=== PATIENT | male | born 1965 | race Two or more races ===

== ENCOUNTER 2016-11-04 17:22 | Inpatient (IN) | payer OTHER ==
[~2016-11-04] VITALS: Ht 180.3 cm; Wt 83.9 kg
--- NOTE | 2016-11-04 17:44 | NUR ---
CALLED [facility] FOR TRANSPORTATION GOING TO [facility] CAT SCAN ETA 183
[2016-11-04] MEDS ORDERED: TDAP [DIPH/PERTUSSIS/TET] 0.5 ML VIAL IM ONE ×2 (17:52→18:00)
[2016-11-04] MEDS ORDERED: HYDROCODONE/APAP 10/325MG 1 EA TABLET ONE (17:52)
[2016-11-04] MEDS ORDERED: HYDROCODONE/APAP 10/325MG 1 EA TABLET PO ONE (18:00)
--- NOTE | 2016-11-04 18:39 | NUR ---
REPORT GIVEN TO [facility] FOR TRANSPORT TO [facility] FOR [facility] SCAN.
--- NOTE | 2016-11-04 20:25 | NUR ---
Patient back from ct, aaox4, no s/s of acute distress. Breathing even and unlabored. Reports sharp pain on lower leg, distal + for CMS. Comfort measures rendered. VSS.
--- NOTE | 2016-11-04 20:43 | NUR ---
xr at bedside.
[2016-11-04] MEDS ORDERED: MORPHINE SULFATE INJ 2 MG/ML DISP.SYRIN IV ONE (21:30)
[2016-11-04] MEDS ORDERED: IV NS 0.9% 1,000 ML BAG IV ONE (21:30)
[2016-11-04] MEDS ORDERED: ONDANSETRON HCL/PF 4 MG/2 ML VIAL IVP ONE (21:30)
[2016-11-04] MEDS ORDERED: MORPHINE SULFATE INJ 4 MG/ML DISP.SYRIN ONE (21:35)
[2016-11-04] MEDS ORDERED: IV NS 0.9% 1,000 ML ONE (21:35)
[2016-11-04] MEDS ORDERED: ONDANSETRON HCL/PF 4 MG/2 ML VIAL ONE (21:35)
[2016-11-04] MEDS ORDERED: IV SET PRIMARY 1 EA INFUS.SET MC ONE (21:35)
[2016-11-04 21:43] LABS: BASOPHILS # (AUTO) 0.1 /CMM (0.0-0.2); BASOPHILS % (AUTO) 0.3 % (0.0-2.0); EOSINOPHILS % (AUTO) 0.1 % (0.0-6.0); HEMATOCRIT 46 % (39-51); HEMOGLOBIN 15.8 g/dL (13.5-17.5); LYMPHOCYTES # (AUTO) 1.4 /CMM (0.8-4.8); LYMPHOCYTES % (AUTO) 7.5 % (20.0-44.0); MEAN CORPUSCULAR HEMOGLOBIN 30 PG (26.0-33.0); MEAN CORPUSCULAR HGB CONC 34 g/dl (31.0-36.0); MEAN CORPUSCULAR VOLUME 89 fL (80-96); MONOCYTES % (AUTO) 5.1 % (2.0-12.0); NEUTROPHILS # (AUTO) 16.5 /CMM (1.8-8.9); PLATELET COUNT (AUTO) 376 /CMM (150-450); RDW COEFFICIENT OF VARIATION 11.7 (11.5-15.0)
[2016-11-04 21:50] LABS: PROTHROMBIN TIME 10.4 SECS (9.5-12.7)
[2016-11-04 21:53] LABS: BILIRUBIN,DIRECT 0.1 mg/dL (0.0-0.2); BILIRUBIN,TOTAL 0.5 mg/dL (0.2-1.0); CALCIUM, SERUM 9.2 mg/dL (8.5-10.1); TOTAL PROTEIN, SERUM 7.4 g/dL (6.4-8.2)
--- NOTE | 2016-11-04 22:03 | NUR ---
PAGED CHARLES HENRY
[2016-11-04] MEDS ORDERED: HYDROMORPHONE 1 MG/1 ML DISP.SYRIN IV ONE (22:30)
[2016-11-04] MEDS ORDERED: HYDROMORPHONE 1 MG/1 ML DISP.SYRIN ONE (22:36)
--- NOTE | 2016-11-04 23:03 | NUR ---
Report given to [facility] for ezequiel.
[2016-11-04 23:15] VITALS: BP 114/74
--- NOTE | 2016-11-04 23:15 | NUR ---
MS/PSYCHOLOGICAL SCIENCE PROFESSOR; ADMITTED 50 YEARS OLD MALE PT. FROM ER VIA GURNEY ACCOMPANIED BY THE STONE DRILLER AND PT 'S . PT IS ALERT AND ORIENTED X 4. DX; LT LEG FRACTURE. NOTED WIT ABRASIONS RT ELBOW, LT HAND, RT LOWER DRIED SCAB, REDNESS RT LOWER AXILLA. HL INTACT. SWOLLEN LT LEG WITH SUPPORT . BED ON LOWER POSITION AND LOCKED. SIDE RAILS AR UP FOR SAFETY.
--- NOTE | 2016-11-04 23:28 | NUR ---
Transported to room 312-1, no incident noted. Endorsed care to [facility].
[2016-11-04 23:30] VITALS: BP 114/74
--- NOTE | 2016-11-04 23:55 | NUR ---
MS/MERINGUER; PT SEEN BY DR. CHARLES HENRY WITH ORDERS. FOOD GIVEN. PT INSTRUCTED NPO AFTER MIDNIGHT ORDERED. PT REFUSED TO TURN TO CHECK HIS LT LEG AND BACK DUE TO PAIN.
[2016-11-05] MEDS ORDERED: ONDANSETRON HCL/PF 4 MG/2 ML VIAL IVP PRN
[2016-11-05] MEDS ORDERED: Z GUARD REMEDY 2 OZ OINT TP PRN
[2016-11-05] MEDS ORDERED: IV D5/0.45 NACL 1,000 ML IV ONE (00:43)
[2016-11-05] MEDS ORDERED: IV SET PRIMARY PUMP SET 1 EA INFUS.SET MC ONE (00:43)
[2016-11-05] MEDS: IV D5/0.45 NACL 1,000 ML IV PRN (00:53)
[2016-11-05] MEDS ORDERED: HYDROMORPHONE 1 MG/1 ML DISP.SYRIN ONE ×2 (01:52→05:04)
[2016-11-05] MEDS: HYDROMORPHONE INJ 2 MG/ML DISP.SYRIN IV PRN ×2 (02:02→05:12)
--- NOTE | 2016-11-05 06:46 | NUR ---
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 IVF ON PROGRESS. STILL ON NPO. PT STILL REFUSED TO BE TURNED TO SIDE TO CHECK THE BACK AND LT LEG DUE TO PAIN. CONTINUE TO MONITOR CALL LIGHT WITHIN REACH.
[2016-11-05 06:47] LABS: BASOPHILS % (AUTO) 0.1 % (0.0-2.0); EOSINOPHILS # (AUTO) 0.2 /CMM (0.0-0.7); EOSINOPHILS % (AUTO) 1.2 % (0.0-6.0); HEMATOCRIT 38 % (39-51); HEMOGLOBIN 13.4 g/dL (13.5-17.5); LYMPHOCYTES # (AUTO) 2.3 /CMM (0.8-4.8); LYMPHOCYTES % (AUTO) 17.7 % (20.0-44.0); MEAN CORPUSCULAR HEMOGLOBIN 31 PG (26.0-33.0); MEAN CORPUSCULAR HGB CONC 35 g/dl (31.0-36.0); MEAN CORPUSCULAR VOLUME 89 fL (80-96); MONOCYTES # (AUTO) 1.1 /CMM (0.1-1.30); MONOCYTES % (AUTO) 8.6 % (2.0-12.0); NEUTROPHILS # (AUTO) 9.6 /CMM (1.8-8.9); NEUTROPHILS % (AUTO) 72.4 % (43.0-81.0); PLATELET COUNT (AUTO) 363 /CMM (150-450); RDW COEFFICIENT OF VARIATION 12.3 (11.5-15.0); RED BLOOD CELL COUNT(AUTO) 4.34 MIL/uL (4.5-6.0); WHITE BLOOD COUNT (AUTO) 13.2 K/uL (4.3-11.0)
[2016-11-05 06:58] LABS: ALBUMIN 3.4 g/dL (3.4-5.0); BILIRUBIN,TOTAL 0.5 mg/dL (0.2-1.0); CALCIUM, SERUM 8.2 mg/dL (8.5-10.1); POTASSIUM 3.7 mmol/L (3.5-5.1); TOTAL PROTEIN, SERUM 6.5 g/dL (6.4-8.2)
--- NOTE | 2016-11-05 07:35 | NUR ---
MS RN OPENING NOTE PATIENT IS ALERT AND ORIENTED x4. PAIN AT THIS TIME, 10/10 ON LEFT LEG. PAIN MEDICATION GIVEN. CALL LIGHT WITHIN REACH. SAFETY MEASURES IMPLEMENTED. IV INTACT AND PATENT NO REDNESS OR SWELLING NOTED. BED LOCKED IN LOWEST POSITION WITH SIDERAILS UP x2. CURRENTLY NPO, AWAITING ORTHO SURGERY CONSULT. WILL CONTINUE TO MONITOR.
[2016-11-05 07:53] LABS: THYROID STIMULATING HORMONE 1.043 uIU/mL (0.358-3.74)
[2016-11-05 08:00] VITALS: BP 125/80
--- NOTE | 2016-11-05 08:00 | NUR ---
MS RN NOTE PER PATIENT REQUEST, TO CUT SHORTS OFF PATIENT. MADE CHARGE AWARE. PATIENT GAVE PERMISSION TO CUT SHORTS.
[2016-11-05] MEDS: HYDROMORPHONE 1 MG/1 ML DISP.SYRIN IV PRN ×5 (08:27→22:38)
[2016-11-05] MEDS ORDERED: HYDROMORPHONE 1 MG/1 ML DISP.SYRIN IV ONE ×2 (11:00→11:30)
--- NOTE | 2016-11-05 11:00 | NUR ---
MS RN NOTE PATIENT REFUSED TO HAVE SPLINT PUT ON. PATIENT WAS IN TOO MUCH PAIN, PAIN MEDICATION GIVEN. PATIENT STATED THAT THE ONLY WAY HE WILL HAVE ANY SPLINTS OR CAST ON IS IF HE IS UNDER SEDATION. MADE GARLAND NEVAREZ NP AWARE. SPOKE TO PATIENT REGARDING MATTER. PATIENT STILL REFUSED SPLINT. WILL ENDORSE TO GENERAL SUPERVISOR NURSE
--- NOTE | 2016-11-05 13:45 | NUR ---
MS ROCHE NOTE PATIENT TAKEN TO RADIOLOGY FOR CT SCAN FOR LEG/KNEE. PATIENT IS STABLE. PAIN [id number] Addendum: 11/05/16 at 1404 by REN HICKS RN PAIN MEDICATION GIVEN. PATIENT OKAY FOR CT SCAN
--- NOTE | 2016-11-05 14:10 | NUR ---
MS RN NOTE PATIENT CAME BACK FROM CT SCAN. PATIENT IS STABLE
[2016-11-05 16:00] VITALS: BP 139/65
[2016-11-05] MEDS ORDERED: HYDROMORPHONE 1 MG/1 ML DISP.SYRIN IV PRN (18:18)
--- NOTE | 2016-11-05 19:00 | NUR ---
MS RN OPENING NOTE PATIENT IS ALERT AND ORIENTED X4 NO S/S OF DISTRESS, NO CHEST PAIN. NO SOB OR DISTRESS NOTED. IN STABLE CONDITION. SAFETY MEASURES IMPLEMENTED. IV INTACT NO S/S OF INFILTRATION NOTED. CALL LIGHT WITHIN REACH. ON LOW BED TO ENSURE SAFETY. WILL CONTINUE TO MONITOR
--- NOTE | 2016-11-05 19:14 | NUR ---
MS RN CLOSING NOTE PATIENT IS ALERT AND ORIENTED x4. NO PAIN AT THIS TIME. NO SOB OR DISTRESS NOTED. ALL DUE MEDICATION GIVEN ORDERED. CALL LIGHT WITHIN REACH. SAFETY MEASURES IMPLEMENTED. REGULAR DIET. TO BE NPO AFTER 8:30 AM. WILL HAVE SURGERY FOR ORIF ON LEFT TIBIA. INFORMED CONSENT OBTAINED. IV INTACT AND PATENT NO REDNESS OR SWELLING NOTED. WILL ENDORSE TO SITE PHYSICIAN NURSE
[2016-11-05 20:00] VITALS: BP_SYST 124; BP_DIAS 48; BP_DIAS 86
[2016-11-05] MEDS ORDERED: HYDROMORPHONE MDV 30 MG in IV NS 0.9% 15 ML, PCA TOTAL VOLUME 1 BAG IV PRN ×3 (20:00)
[2016-11-05] MEDS: ACETAMINOPHEN 325 MG TABLET PO PRN (22:38)
[2016-11-06] VITALS (9 sets, daily range): BP systolic 119–155; BP diastolic 82–95
[2016-11-06] MEDS ORDERED: ANCEF 1 GM/50 ML D5W IV SCH ×2 (01:00)
[2016-11-06] MEDS: IV D5/0.45 NACL 1,000 ML IV PRN (02:14)
[2016-11-06] MEDS: HYDROMORPHONE 1 MG/1 ML DISP.SYRIN IV PRN ×4 (02:38→16:06)
--- NOTE | 2016-11-06 04:04 | NUR ---
MS RN NOTES 11/05/16 AT 2100 EXPLAINED AND EDUCATED THE PATIENT ABOUT THE ACTIVE AND ONGOING PAIN MEDICATION IV DRIP THAT HE HAS INCASE THE PAIN IS NOT TOLERABLE ANYMORE. THAT I WILL START JOVANY. PATIENT DECIDED THAT HE WILL USE THE I.V DILAUDID DRIP AFTER HIS SURGERY IS DONE TODAY. RISKS AND BENEFITS EXPLAINED REFUSE IV DRIP DILAUDID AT THIS TIME PER PATIENT HE WANTS TO USE FIRST THE IV PUSH DILAUDID 1ML/ML Q 4 HOURS. MADE AWARE AND AMADOU NO AT 2200
[2016-11-06] MEDS: ACETAMINOPHEN 325 MG TABLET PO PRN (06:45)
--- NOTE | 2016-11-06 06:53 | NUR ---
MS RN CLOSING NOTES PATIENT COMFORTABLY ASLEEP AND EASILY AWAKEN,. A/O X 4 IV SITE NO S/S OF INFILTRATED, IV HYDRATION TOLERATED WELL. RUNNING AT 75CC/HR. RESPIRATIONS EVEN AND UNLABORED. NO S/S OF ACUTE DISTRESS, NO SOB, NO COUGH, NO CONGESTION, SKIN WARM AND DRY TO TOUCH, AFEBRILE, ALL NURSING CARE NEEDS PROVIDED AND RENDERED, NEEDS ATTENDED AND ANTICIPATED, KEPT CLEAN AND DRY AND COMFORTABLE, BLADDER NOT DISTENDED, ASSISTED REPOSITIONED EVERY 2 HOURS FOR COMFORT. GOOD SKIN CARE PROVIDED. ABDOMEN SOFT AND NON TENDER. NO C/O OF CONSTIPATION. ALL DUE MEDS WAS GIVEN TOLERATED. OFFLOAD AT ALL TIMES. FREQUENT VISUAL CHECK DONE FOR SAFETY EVERY 2 HOURS. SAFE HAZARD FREE ENVIRONMENT PROVIDED. CALL LIGHT WITHIN EASY TO REACH, ON LOW BED AT ALL TIMES TO ENSURE SAFETY, WILL ENDORSE TO THE NEXT SHIFT CONTINUE PLAN OF CARE. PATIENT STATED AGAIN THAT FOR NOW NO NEED OF I.V DRIP OF DILAUDID AND WILL USE AFTER SURGERY TODAY. MAINTAINS NPO AFTER MIDNIGHT.
--- NOTE | 2016-11-06 07:45 | NUR ---
MS RN OPENING NOTE PATIENT IS ALERT AND ORIENTED x4. NO PAIN AT THIS TIME. NO SOB OR DISTRESS NOTED. SAFETY MEASURES IMPLEMENTED. CALL LIGHT WITHIN REACH. NPO THIS MORNING WILL HAVE SURGERY LATER THIS AFTERNOON. INFORMED CONSENT OBTAINED. WILL CONTINUE TO MONITOR.
--- NOTE | 2016-11-06 16:20 | NUR ---
MS RN NOTE PATIENT IS HEADING DOWN TO OR FOR SURGERY. PATIENT IS STABLE. VITALS ARE STABLE. NO PAIN AT THIS TIME. NO SOB OR DISTRESS NOTED.
[2016-11-06] MEDS ORDERED: FENTANYL PF 250MCG/5ML AMPUL ONE (16:37)
[2016-11-06] MEDS ORDERED: ROCURONIUM BROMIDE 50 MG/5 ML ONE (16:38)
[2016-11-06] MEDS ORDERED: BACITRACIN 50000 UNITS/VIAL ONE (17:40)
[2016-11-06] MEDS ORDERED: DESFLURANE 240 ML BOTTLE IH ONE (18:28)
[2016-11-06] MEDS ORDERED: SEVOFLURANE 250 ML BOTTLE IH ONE (18:28)
--- NOTE | 2016-11-06 18:55 | NUR ---
MS RN CLOSING NOTE PATIENT IS IN SURGERY FOR ORIF ON THE LEFT LEG. WILL ENDORSE TO SURGEON'S ASSISTANT NURSE
[2016-11-06] MEDS ORDERED: HYDROMORPHONE INJ 2 MG/ML DISP.SYRIN ONE ×2 (19:00→19:47)
--- NOTE | 2016-11-06 19:34 | NUR ---
PATIENT AT SURGERY AT THIS TIME.
[2016-11-06] MEDS ORDERED: ANESTHESIA TRAY IN PYXIS 1 EA TRAY MC ONE (19:56)
[2016-11-06] MEDS ORDERED: BUPIVACAINE MPF 0.5% W/EPI INJ 30 ML VIAL ONE (20:05)
[2016-11-06] MEDS ORDERED: HYDROMORPHONE 1 MG/1 ML DISP.SYRIN ONE (20:14)
[2016-11-06] MEDS ORDERED: NALOXONE HCL 0.4 MG/ML AMPUL IV PRN (21:00)
[2016-11-06] MEDS ORDERED: HYDROCODONE/APAP 5/325MG 1 EACH TABLET PO PRN (21:00)
--- NOTE | 2016-11-06 21:40 | NUR ---
MS RN OPENING NOTE PATIENT IS ALERT AND ORIENTED x4 TRANSPORTED FROM [facility] VIA ACLS PROTOCOL S/P ORIF L LOWER LEG, NO S/S OF DISTRESS, NO CHEST PAIN. NO SOB OR DISTRESS NOTED. IN STABLE CONDITION. SAFETY MEASURES IMPLEMENTED. OROZCO CATHETER IN PLACE.. IV INTACT NO S/S OF INFILTRATION NOTED. CALL LIGHT WITHIN REACH. ON LOW BED TO ENSURE SAFETY. WILL CONTINUE TO MONITOR PATIENT.
[2016-11-06] MEDS ORDERED: SECONDARY IV SET 1 EA INFUS.SET MC ONE (22:56)
[2016-11-07] VITALS: BP 158/98
[2016-11-07 00:10] VITALS: BP 158/98
--- NOTE | 2016-11-07 01:00 | NUR ---
ANCEF 2 GRAMS IV ATB MEDICATION GIVEN ORDERED 11/07/16 AT 0100 Q8 PHARMACY WRONG INPUT DATE AND TIME.
[2016-11-07] MEDS ORDERED: SET PCA INFUSE SET 1 EA INFUS.SET MC ONE (01:22)
[2016-11-07] MEDS ORDERED: IV NS 0.9% 250 ML IV ONE ×2 (01:29→09:07)
[2016-11-07] MEDS ORDERED: IV SET PRIMARY PUMP SET 1 EA INFUS.SET MC ONE ×2 (01:35→09:06)
[2016-11-07] MEDS: HYDROMORPHONE MDV 30 MG in IV NS 0.9% 15 ML, PCA TOTAL VOLUME 1 BAG IV PRN ×3 (02:04)
[2016-11-07 04:10] VITALS: BP 136/78
[2016-11-07] MEDS: IV D5/0.45 NACL 1,000 ML IV PRN (05:40)
--- NOTE | 2016-11-07 06:32 | NUR ---
MS RN CLOSING NOTES IN BED ASLEEP AND EASILY AWAKEN, SEMI FOWLERS POSITION, TOLERATING ROOM AIR. 02 SAT AT SP02 98% MONITORED CONTINUOUSLY. S/P SURGERY ORIF 11/06/16 PATIENT RECEIVING HYDROMORPHONE/DILAUDID 1MG/ML VIA EVALUATOR DOSE OF 0.4 MG LOCKOUT INTERVAL 10 MINUTES AND FOUR HOUR LIMIT 6 MG. SKIN WARM AND DRY TO TOUCH, AFEBRILE, ALL NURSING CARE NEEDS PROVIDED AND RENDERED, NEEDS ATTENDED AND ANTICIPATED, KEPT CLEAN AND DRY AND COMFORTABLE, BLADDER NOT DISTENDED, ON F/C CATH. DRAINING YELLOW VIA GRAVITY WITH NO SEDIMENTS NO HEMATURIA NO CLOUDINESS. CONTINUE WITH CURRENT MEDICATION ORDERED, NO LATE ADVERSE REACTION NOTED/REPORTED. FLUIDS PROVIDED ORDERED. COOPERATIVE TO HIS PLAN OF CARE. SAFE HAZARD FREE ENVIRONMENT MAINTAINED. ASSISTED REPOSITION PATIENT EVERY 2 HOURS FOR SKIN MANAGEMENT AND COMFORT. GOOD SKIN CARE PROVIDED. ALL DUE MEDS WAS GIVEN. IV FLUIDS ONGOING IV SITE NO S/S OF INFILTRATION NOTED. KEPT AT LOW BED. FREQUENT VISUAL CHECK FOR SAFETY. PLAN OF CARE ORDERED. CALL LIGHT ATTENDED PROMPTLY AND KEPT AT EASY REACH. WILL ENDORSE TO THE NEXT SHIFT CONTINUE PLAN OF CARE. OFFLOAD AT ALL TIMES.
[2016-11-07 06:55] LABS: BASOPHILS % (AUTO) 0.2 % (0.0-2.0); EOSINOPHILS % (AUTO) 0.1 % (0.0-6.0); HEMATOCRIT 40 % (39-51); HEMOGLOBIN 13.5 g/dL (13.5-17.5); LYMPHOCYTES # (AUTO) 2.2 /CMM (0.8-4.8); MEAN CORPUSCULAR HEMOGLOBIN 30 PG (26.0-33.0); MEAN CORPUSCULAR HGB CONC 34 g/dl (31.0-36.0); MEAN CORPUSCULAR VOLUME 90 fL (80-96); MONOCYTES # (AUTO) 1.3 /CMM (0.1-1.30); MONOCYTES % (AUTO) 7.9 % (2.0-12.0); NEUTROPHILS # (AUTO) 13.2 /CMM (1.8-8.9); NEUTROPHILS % (AUTO) 78.8 % (43.0-81.0); PLATELET COUNT (AUTO) 412 /CMM (150-450); RED BLOOD CELL COUNT(AUTO) 4.44 MIL/uL (4.5-6.0); WHITE BLOOD COUNT (AUTO) 16.8 K/uL (4.3-11.0)
[2016-11-07 07:07] LABS: CALCIUM, SERUM 9.6 mg/dL (8.5-10.1)
--- NOTE | 2016-11-07 07:34 | NUR ---
PATIENT RECEIVED 2MG/2ML OF DILAUDID VIA KNIT GOODS PRESS HAND PUMP SINCE STARTED.
--- NOTE | 2016-11-07 07:39 | NUR ---
RN CLINT NOTES RECEIVED PT AWAKE AND ALERT WITH NAD. LEFT LEG DRESSING AND IMMOBILIZER IN PLACE WITH ICE PACK IN PLACE. ABLE TO MOVE AFFECTED EXT, SKIN AND CIRCULATION WNL. OROZCO CATH DRAINING THRU GRAVITY. ON SENIOR DIRECTOR MARKETING DILAUDID FOR PAIN MANAGEMENT; TEACHINGS GIVEN. SAFETY ENSURED AND ALL NEEDS ATTENDED. WILL MONITOR
[2016-11-07 08:00] VITALS: BP 139/82
[2016-11-07] MEDS: CEFAZOLIN 2 GM in IV D5W 50 ML IV SCH ×2 (09:03→17:30)
[2016-11-07] MEDS ORDERED: SECONDARY IV SET 1 EA INFUS.SET MC ONE (09:06)
--- NOTE | 2016-11-07 11:48 | NUR ---
RN NOTES TEACHINGS RE IS USE GIVEN= 700 ML
[2016-11-07 16:00] VITALS: BP 122/80
--- NOTE | 2016-11-07 17:33 | NUR ---
RN NOTES PT SEEN AND ASESSED BY ORTHO AVIATION SAFETY OFFICER ADAM MOODY WITH VERBAL ORDER FOR PT CONSULT
--- NOTE | 2016-11-07 18:53 | NUR ---
RN CLOSING NOTES PT DOZING INTERMITTENTLY , NO SOB, NAD. USES PRODUCTION TOOL ENGINEER DILAUDID WHEN NEEDED AND VERBALIZED RELIEF FROM PAIN; NO A/R NOTED. IVF INFUSING WELL. LEFT LEG DRESSING AND IMMOBILIZER IN PLACE, SKIN AND CIRCULATION WNL. DRESSING INTACT WITH NO BLEEDING NOTED. MEDS GIVEN. WILL ENDORSE TO NEXT SHIFT FOR CONTINUITY OF CARE IN STABLE CONDITION
--- NOTE | 2016-11-07 19:00 | NUR ---
MS RN OPENING NOTE PATIENT IS ALERT AND ORIENTED X4, FAMILY AT BEDSIDE, NO S/S OF DISTRESS, NO CHEST PAIN. NO SOB OR DISTRESS NOTED. IN STABLE CONDITION. SAFETY MEASURES IMPLEMENTED. IV INTACT NO S/S OF INFILTRATION NOTED. CALL LIGHT WITHIN REACH. ON LOW BED TO ENSURE SAFETY. WILL CONTINUE TO MONITOR
[2016-11-07 20:00] VITALS: BP 122/69
[2016-11-07] MEDS: ENOXAPARIN SODIUM 40 MG/0.4 ML DISP.SYRIN SQ SCH (21:20)
[2016-11-08] MEDS: HYDROMORPHONE MDV 30 MG in IV NS 0.9% 15 ML, PCA TOTAL VOLUME 1 BAG IV PRN ×3 (02:03)
[2016-11-08] MEDS: IV D5/0.45 NACL 1,000 ML IV PRN (05:31)
--- NOTE | 2016-11-08 06:49 | NUR ---
MS RN CLOSING NOTES PATIENT COMFORTABLY IN BED ASLEEP AND EASILY AWAKEN, ALERT AND VERBALLY X 4 RESPONSIVE DENIES PAIN OR DISTRESS, RESPONDS APPROPRIATELY TO VERBAL STIMULI, RESPIRATIONS EVEN UNLABORED BREATH SOUNDS. APICAL PULSE REGULAR; NO S/S OF BLEEDING NOTED. GOOD SKIN CARE PROVIDED. MAINTAINS NWB LLE, ELEVATED LLE, ICE PUT, DRESSING CHANGE WILL BE TODAY, ON ADOBE FLEX DEVELOPER PUMP ONGOING DILAUDID ORDERED. PATIENT IN STABLE CONDITION WITH NO SOB NO S/S OF DISTRESS NO NAUSEA AND VOMITING NO HEADACHE NO PAIN, NO COMPLAIN OF CHEST PAIN SAFETY ENVIRONMENT PROVIDED. FREE OF CLUTTERS, NEEDS ATTENDED AND ANTICIPATED, NURSING CARE RENDERED, KEPT CLEAN AND DRY AND COMFORTABLE. ALL DUE MEDS WAS GIVEN. ASSISTED PATIENT TO REPOSITION. CALL LIGHT IN REACH, BED LOWERED AND LOCKED, SR X2 FOR SAFETY AND WILL ENDORSE CONTINUE PLAN OF CARE.
--- NOTE | 2016-11-08 07:00 | NUR ---
MS RN INITIAL NOTE REPORT RECEIVED AT THE BEDSIDE. NO SOB OR DISTRESS NOTED AT THIS TIME. PATIENT REPORTS TOLERABLE PAIN. PCS CHECKED. 4MLS RECEIVED OVERNIGHT. BED IN LOW POSITION, CALL LIGHT WITHIN PATIENT REACH. WILL CONTINUE TO MONITOR.
--- NOTE | 2016-11-08 07:33 | NUR ---
PATIENT RECEIVED OF TOTAL 4MG/4ML OF DILAUDID VIA CLOTH FOLDER HAND PUMP TOLERATED WELL SINCE 0203 AM. WITNESSED AND ENDORSE ELAINE ROCHE.
[2016-11-08 08:25] VITALS: BP 123/70
[2016-11-08] MEDS ORDERED: diphenhydrAMINE HCL 50 MG/ML VIAL IV PRN (09:30)
[2016-11-08 16:00] VITALS: BP 129/84
--- NOTE | 2016-11-08 19:37 | NUR ---
MS RN CLOSING NOTES NO SIGNIFICANT CHANGES IN PATIENT CONDITION THROUGHOUT THE SHIFT. NO SOB OR DISTRESS NOTED AT THIS TIME. PATIENT REPORTS TOLERABLE PAIN. HOST/HOSTESS HEAD CHECKED WITH ARCELIA, RN AND SHIFT TOTAL CLEARED AT 9.3ML FOR DAY SHIFT. BED IN A LOW POSITION, CALL LIGHT WITHIN PATIENT REACH. ENDORSED FOR SEVERIANO.
--- NOTE | 2016-11-08 19:44 | NUR ---
RN NOTE RECEIVED REPORT. PT AAOX4, REPORTING TOLERABLE PAIN. AIDS COUNSELOR PUMP CHECKED, SETTINGS ACCURATE. KNEE IMMOBILZER IN PLACE. IV INTACT AND PATENT, TOLERATING FLUIDS WELL. ALL NEEDS ATTENED TO AT THIS TIME. WILL CONT TO MONITOR.
[2016-11-08 20:13] VITALS: BP 125/76
[2016-11-08] MEDS ORDERED: SENNOSIDES 8.6 MG TABLET PO ONE (21:30)
[2016-11-08] MEDS ORDERED: LACTULOSE 10 G/15 ML UDC (PYXIS) PO ONE (21:30)
[2016-11-08] MEDS: ENOXAPARIN SODIUM 40 MG/0.4 ML DISP.SYRIN SQ SCH (21:36)
[2016-11-08] MEDS ORDERED: LACTULOSE 10 G/15 ML UDC (PYXIS) ONE (21:36)
[2016-11-08] MEDS ORDERED: BISACODYL SUPP (10 MG) 10 MG/SUPP.RECT SUPP.RECT RC ONE ×2 (21:36→22:30)
[2016-11-08] MEDS ORDERED: SENNOSIDES 8.6 MG TABLET ONE (21:37)
[2016-11-09] MEDS: ZOLPIDEM TARTRATE 5 MG TABLET PO PRN (01:04)
[2016-11-09] MEDS ORDERED: SET PCA INFUSE SET 1 EA INFUS.SET MC ONE (02:08)
[2016-11-09] MEDS: HYDROMORPHONE MDV 30 MG in IV NS 0.9% 15 ML, PCA TOTAL VOLUME 1 BAG IV PRN ×3 (02:24)
[2016-11-09] MEDS ORDERED: IV SET PRIMARY PUMP SET 1 EA INFUS.SET MC ONE (02:32)
[2016-11-09] MEDS ORDERED: IV NS 0.9% 250 ML IV ONE (02:32)
[2016-11-09] MEDS: IV D5/0.45 NACL 1,000 ML IV PRN (05:18)
[2016-11-09] MEDS ORDERED: DEXTROSE 50%-WATER 50 ML DISP.SYRIN ONE (05:46)
--- NOTE | 2016-11-09 06:22 | NUR ---
RN NOTE NO SIGNIFICANT CHANGES OVERNIGHT. PRN AMBIEN EFFECTIVE. PT RESTING WITH EYES CLOSED - NO S/S OF ANY PAIN OR DISCOMFORT AT THIS TIME. BREATHING NON-LABORED AND EVEN. IV INTACT AND PATENT, TOLERATING FLUIDS WELL. WILDLIFE PROTECTOR PUMP IN USE, SETTINGS ACCURATE. TO GO FOR P.T. SESSION IN AM. IMMOBILIZER IN PLACE, DRESSING INTACT. CALL LIGHT IN REACH, WILL F/U WITH DAY SHIFT FOR SEVERIANO.
--- NOTE | 2016-11-09 07:35 | NUR ---
RN OPEN NOTES PATIENT IS ALERT AND ORIENTED TO NAME, PLACE AND TIME. PATIENT IS IN BED. BED IN LOW POSITION, LOCKED AND 2 SIDE RAILS ARE UP. LEFT LEG IS ELEVATED ON TWO PILLOW. HEELS ARE FLOATING OFF THE BED. NO SIGNS AND SYMPTOMS OF DISTRESS. PAIN LEVEL 3/10. PATIENT IS ON DILAUDID DRIP, SETTING SHOWS 28.6 MG ARE AT THE BAG. IV SITE IS POTENT AND INTACT. WILL CONTINUE TO MONITOR AND ASSES PATIENT CONDITION THROUGH OUT MY SHIFT
[2016-11-09 08:00] VITALS: BP 119/73
[2016-11-09] MEDS ORDERED: HYDROCODONE/APAP 10/325MG 1 EA TABLET PO PRN (11:00)
--- NOTE | 2016-11-09 11:30 | NUR ---
RN NOTES / IV SITE IV SITE IS INFILTRATE. DISCONTINUE IV SITE, REMOVED IV CATHETER, ELEVATED THE HAND AND ICE BAG APPLIED. NEW IV SITE STARTED PN THE RIGHT HAND 22g.
[2016-11-09] MEDS: HYDROCODONE/APAP 10/325MG 1 EA TABLET PO PRN ×3 (13:45→22:47)
[2016-11-09 16:00] VITALS: BP 142/75
--- NOTE | 2016-11-09 19:35 | NUR ---
MS RN OPENING NOTES: RECEIVED PATIENT AWAKE AND LAYING DOWN IN BED. PATIENT A/OX4. FAMILY MEMBER AT BEDSIDE. KEPT CLEAN, DRY, AND COMFORTABLE. BED KEPT IN LOWEST, LOCKED POSITION, AND SIDE RAILS X2. IV IS IN R HAND #22G AND IS PATENT AND INTACT. WILL CONTINUE TO MONITOR PT.
[2016-11-09 20:00] VITALS: BP 125/75
[2016-11-09] MEDS: SENNOSIDES 8.6 MG TABLET PO SCH (21:41)
[2016-11-09] MEDS: ENOXAPARIN SODIUM 40 MG/0.4 ML DISP.SYRIN SQ SCH (21:43)
[2016-11-09] MEDS ORDERED: IV D5/0.45 NACL 1,000 ML IV ONE (22:24)
--- NOTE | 2016-11-09 22:47 | NUR ---
MS RN NOTES: PATIENT COMPLAINED OF L KNEE PAIN 02/01. PT GOT NORCO 10/325MG. WILL CONTINUE TO MONITOR PT.
[2016-11-10] MEDS: ZOLPIDEM TARTRATE 5 MG TABLET PO PRN ×2 (01:03→23:41)
--- NOTE | 2016-11-10 03:10 | NUR ---
GAVE PATIENT TO KALEY HO AT 0315. ENDORSED TO HER. PATIENT ASLEEP IN BED. CALL LIGHT WITHIN REACH. BED IN LOCKED, LOWEST POSITION, AND SIDE RAILS X2 UP. KEPT CLEAN, DRY, AND COMFORTABLE. IV PATENT AND INTACT.
[2016-11-10] MEDS: HYDROCODONE/APAP 10/325MG 1 EA TABLET PO PRN ×4 (06:19→18:28)
--- NOTE | 2016-11-10 06:45 | NUR ---
RN CLOSING NOTES NO SIGNIFICANT CHANGES NOTED. Pt ASKED FOR NORCO AT 0620 FOR 6/10 PAIN ON LT LEG. NO S/S OF ACUTE DISTRESS OR SOB NOTED. ALL NEEDS MET AND ATTENDED TO. SAFETY MEASURES IN PLACE. WILL ENDORSE TO AMBER RN FOR Pt's SEVERIANO. POSSIBLE D/C HOME TODAY.
[2016-11-10 08:00] VITALS: BP 110/67
--- NOTE | 2016-11-10 08:00 | NUR ---
MS RN NOTE PT. AWAKE, ALERT AND ORIENTED X4. COMPLAINTS OF LT LEG PAIN. PT ALREADY TAKEN PAIN PILL. CALL LIGHT WITHIN REACH. SIDE RAILS UP. MONITOR CLOSELY.
[2016-11-10 16:00] VITALS: BP 122/76
--- NOTE | 2016-11-10 18:42 | NUR ---
PT. AWAKE, ALERT AND ORIENTED X4. COMPLAINTS OF LT LEG PAIN, TAKES NORCO ORDERED. SIDE RIALS UP. CALL LIGHT WITHIN REACH. MONITOR CLOSELY.
--- NOTE | 2016-11-10 19:45 | NUR ---
RN OPENING NOTES RECEIVED REPORT FROM DAYSHIFT RNALMA. FOUND Pt AWAKE, WATCHING TV IN BED. VISITING AT BEDSIDE. Pt IS A/OX4, VERBAL, ABLE TO MAKE NEEDS KNOWN. NO S/S OF ACUTE DISTRESS OR SOB NOTED. IV ACCESS ON R HAND #22G, SL. SAFETY MEASURES IN PLACE. BED LOW, LOCKED, HOB ELEVATED, SIDE RAILS UP, CALL LIGHT AND BEDSIDE TABLE WITHIN REACH. WILL CONTINUE TO MONITOR Pt THROUGHOUT THE NIGHT FOR SAFETY.
[2016-11-10 20:00] VITALS: BP 124/80
[2016-11-10] MEDS: SENNOSIDES 8.6 MG TABLET PO SCH (20:38)
[2016-11-10] MEDS: ACETAMINOPHEN 325 MG TABLET PO PRN (20:39)
[2016-11-10] MEDS: ENOXAPARIN SODIUM 40 MG/0.4 ML DISP.SYRIN SQ SCH (20:41)
[2016-11-10] MEDS ORDERED: HYDROCODONE/APAP 10/325MG 1 EA TABLET PO PRN (22:00)
[2016-11-11] MEDS: HYDROCODONE/APAP 10/325MG 1 EA TABLET PO PRN ×4 (05:01→17:16)
--- NOTE | 2016-11-11 06:55 | NUR ---
RN CLOSING NOTES NO SIGNIFICANT CHANGES NOTED DURING THE NIGHT. NO S/S OF ACUTE DISTRESS OR SOB NOTED. ALL NEEDS MET AND ATTENDED TO. SAFETY MEASURES IN PLACE. WILL ENDORSE TO DAYSHIFT RN FOR Pt's SEVERIANO & SAFETY.
--- NOTE | 2016-11-11 07:30 | NUR ---
MS RN RECEIVED ON BED, AWAKE,ALERT ORIENTED X4, NOT IN ANY FORM OF DISTRESS, RESPIRATIONS EVEN AND UNLABORED,NO SOB NOTED, LUNGS ARE CLEAR,ABDOMEN SOFT,POSITIVE BOWEL SOUNDS, DENIES PAIN AT THIS TIME,WILL MONITOR PATIENT.
[2016-11-11 08:00] VITALS: BP 114/68
[2016-11-11 08:06] LABS: BASOPHILS % (AUTO) 0.2 % (0.0-2.0); EOSINOPHILS # (AUTO) 0.5 /CMM (0.0-0.7); EOSINOPHILS % (AUTO) 3.8 % (0.0-6.0); HEMATOCRIT 34 % (39-51); HEMOGLOBIN 11.3 g/dL (13.5-17.5); LYMPHOCYTES # (AUTO) 2.2 /CMM (0.8-4.8); LYMPHOCYTES % (AUTO) 18.3 % (20.0-44.0); MEAN CORPUSCULAR HEMOGLOBIN 30 PG (26.0-33.0); MEAN CORPUSCULAR HGB CONC 33 g/dl (31.0-36.0); MEAN CORPUSCULAR VOLUME 90 fL (80-96); MONOCYTES # (AUTO) 0.9 /CMM (0.1-1.30); MONOCYTES % (AUTO) 7.8 % (2.0-12.0); NEUTROPHILS # (AUTO) 8.5 /CMM (1.8-8.9); NEUTROPHILS % (AUTO) 69.9 % (43.0-81.0); PLATELET COUNT (AUTO) 551 /CMM (150-450); WHITE BLOOD COUNT (AUTO) 12.1 K/uL (4.3-11.0)
[2016-11-11 08:30] LABS: POTASSIUM 4.1 mmol/L (3.5-5.1)
--- NOTE | 2016-11-11 08:30 | NUR ---
MS ROCHE BREAKFAST SERVED,DUE MEDS GIVEN,TOLERATED WELL.
--- NOTE | 2016-11-11 10:00 | NUR ---
MS RN PATIENT DOES NOT WANT TO GO HOME UNLESS W/ EQUIPMENT AT HOME, SPOKE TO
[2016-11-11] MEDS ORDERED: MAGNESIUM HYDROXIDE 30 ML UDC PO STA (10:43)
--- NOTE | 2016-11-11 15:00 | NUR ---
MS RN WALKER DELIVERED, WENT TO RENT WHEELCHAIR INSTEAD, BLOCKER HAND IS WAITING FOR INSURANCE AUTHORIZATION.
[2016-11-11 16:00] VITALS: BP 125/74
[2016-11-11] MEDS ORDERED: NA PHOS,M-B/NA PHOS,DI-BA 1 EA ENEMA RC PRN (17:00)
--- NOTE | 2016-11-11 17:18 | NUR ---
MS RN PATIENT ON BED, NO DISTRESS NOTED.
--- NOTE | 2016-11-11 18:00 | NUR ---
MS KALEY FLEET ENEMA WAS DONE W/ VERY GOOD RESULT.
--- NOTE | 2016-11-11 19:20 | NUR ---
MS RN STILL WAITING FOR THE TO DISCHARGE,ALL NEEDS ATTENDED.
--- NOTE | 2016-11-11 19:30 | NUR ---
MS/PARTS FINISHER; RECEIVED PT. IN BED A/O X 4. DENIES PAIN. LT LOWER LEG INCISION WITH DRESSING AND IMMOBILIZER. HL INTACT. AWAITING FOR .
[2016-11-11 20:00] VITALS: BP 128/88
--- NOTE | 2016-11-11 20:05 | NUR ---
MS/APPLICATIONS ENGINEER MANUFACTURING; HL AND NAME [facility] BAND REMOVED. ALL DC PAPERS WERE ALREADY GIVEN BY THE DAY SHIFT RN .
--- NOTE | 2016-11-11 20:25 | NUR ---
MS/TIP BANDING MACHINE OPERATOR; PT DC HOME ACCOMPANIED BY THE . PT WHEELED DOWN TO THE LOBBY WITH ALL THE BELONGINGS.
== END 2016-11-11 20:30 | disposition home health service (06) | DRG 313 ==
LOC: ER 17:24 → MED 22:56
PROVIDERS: ADMIT Nurse Practitioner Acute Care; ATTEND Nurse Practitioner Acute Care
PROC: 0S9D3ZZ Drainage of Left Knee Joint, Percutaneous Approach (ICD-10-PCS; 2016-11-06)
PROC: 0QSH04Z Reposition Left Tibia with Internal Fixation Device, Open Approach (ICD-10-PCS; principal; 2016-11-06 17:38)
DX: S82.142A Displaced bicondylar fracture of left tibia, initial encounter for closed fracture (principal); M25.00 Hemarthrosis, unspecified joint; E78.5 Hyperlipidemia, unspecified; D72.829 Elevated white blood cell count, unspecified; F17.200 Nicotine dependence, unspecified, uncomplicated; S61.412A Laceration without foreign body of left hand, initial encounter; V23.4XXA Motorcycle driver injured in collision with car, pick-up truck or van in traffic accident, initial encounter; Y93.I9 Activity, other involving external motion; Y92.410 Unspecified street and highway as the place of occurrence of the external cause; S82.832A Other fracture of upper and lower end of left fibula, initial encounter for closed fracture; F17.210 Nicotine dependence, cigarettes, uncomplicated
CPT/HCPCS: 36415; 71010-TC; 72125-TC; 73020; 73560-TC; 73590-TC; 73610-TC; 73700-TC; 80048-TC; 80053-TC; 80061-TC; 80076-TC; 83735-TC; 84100-TC; 84443-TC; 85025-TC; 85730-TC; 86850-TC; 86921-TC; 87081-TC; 90715; 93307-TC; 97001-TC; 97116-TC; 97530-TC; A4216; A4606; J0690; J1100; J1170; J1650; J2001; J2270; J2405; J2704; J2710; J3010; J3490; J7030; J7050; J7060; L1830; Z7610